=== PATIENT | male | born 1985 | race Caucasian/White ===

== ENCOUNTER 2018-08-19 13:39 | Emergency (ER) | payer OTHER ==
[~2018-08-19] VITALS: Ht 185.4 cm; Wt 63.5 kg
[2018-08-19 14:00] VITALS: BP_SYST 142
--- NOTE | 2018-08-19 15:07 | NUR ---
Patient to ER bed 3 to gown for evaluation. Side rails up. Report given to Madi CAGE.
--- NOTE | 2018-08-19 15:08 | NUR ---
Patient comes to ER in personal vehicle, [employer], verbal and ambulatory. Patient has laceration to RT hand tip of middle finger, he states that he cut it helping a friend move furniture. He attempted to close wound with super glue. No bleeding at this time. No other complaint or injury at this time.
--- NOTE | 2018-08-19 15:40 | NUR ---
Patient moved to [facility] to facilitate patient flow. Reassigned to Sylvie CAGE
--- NOTE | 2018-08-19 15:52 | NUR ---
ER Dr. OSEGUERA at bedside examining patient.
[2018-08-19] MEDS ORDERED: LIDOCAINE 1% 10 MG/ML, 20 ML MDV IJ ONE (16:00)
[2018-08-19] MEDS ORDERED: BACITRACIN 1 GM OINT TP ONE (16:00)
--- NOTE | 2018-08-19 16:13 | NUR ---
Patient given written and verbal discharge instructions and verbalizes understanding. ER MD discussed with patient the results and treatment provided. Patient in stable condition. ID arm band removed. Rx of NEOSPORIN given. Patient educated on pain management and to follow up with PMD. Pain Scale 0/10. Opportunity for questions provided and answered. Medication side effect fact sheet provided.
[2018-08-19 16:14] VITALS: BP_SYST 142
== END 2018-08-19 16:13 | disposition home or self-care (01) ==
LOC: SED 13:39
DX: S61.212A Laceration without foreign body of right middle finger without damage to nail, initial encounter (principal); R03.0 Elevated blood-pressure reading, without diagnosis of hypertension; W22.8XXA Striking against or struck by other objects, initial encounter; Y93.89 Activity, other specified; Y92.89 Other specified places as the place of occurrence of the external cause; Y99.8 Other external cause status
CPT/HCPCS: 99282